=== PATIENT | female | born 1980 | race Caucasian/White ===

== ENCOUNTER 2016-12-05 01:30 | Emergency (ER) | payer OTHER ==
[2016-12-05 02:43] LABS: CALCIUM 8.4 mg/dL (8.5-10.1); CARBON DIOXIDE 22.1 mmol/L (21-32); CHLORIDE SERUM 106 mmol/L (98-107); CREATININE SERUM 0.7 mg/dL (0.6-1.0); GFR1 > 60 mL/min; GLUCOSE SERUM 101 mg/dL (74-106); PLATELET COUNT 288 x10^3mcL (130-400); POTASSIUM SERUM 3.5 mmol/L (3.5-5.1); SODIUM SERUM 137 mmol/L (136-145)
[2016-12-05 02:47] LABS: ALKALINE PHOSPHATASE 61 U/L (46-116); ALT/SGPT 23 U/L (14-59); AMYLASE 57 U/L (25-115); AST/SGOT 15 U/L (15-37); BASOPHIL % 4.9 % (0-2); BILIRUBIN TOTAL 0.14 mg/dL (0.20-1.00); LIPASE 183 IU/L (73-393); RED CELL DISTRIBUTION WIDTH 16.3 % (11.5-14.5)
[2016-12-05 02:49] LABS: ALBUMIN 3.3 g/dL (3.4-5.0)
[2016-12-05 02:53] LABS: microscopic required? YES; urine erythrocyte NEGATIVE (NEGATIVE)
[2016-12-05 05:01] VITALS: BP 124/90
== END 2016-12-05 05:00 | disposition left against medical advice (07) ==
LOC: ED 01:30
PROVIDERS: Emergency Medicine
DX: R10.9 Unspecified abdominal pain (principal); R51 Headache; R11.10 Vomiting, unspecified
CPT/HCPCS: J1170; J2270; J2405; J2765; J7030

== ENCOUNTER 2017-08-29 22:07 | Emergency (ER) | payer OTHER ==
[~2017-08-29] VITALS: Ht 152.4 cm; Wt 55.0 kg
[2017-08-29 22:54] VITALS: Ht 152.4 cm; Wt 55.0 kg
[2017-08-29 23:57] VITALS: BP 133/68
== END 2017-08-29 23:57 | disposition home or self-care (01) ==
LOC: ED 22:07
DX: S50.02XA Contusion of left elbow, initial encounter (principal); W22.8XXA Striking against or struck by other objects, initial encounter; Y93.89 Activity, other specified; Y92.89 Other specified places as the place of occurrence of the external cause; Y99.8 Other external cause status
CPT/HCPCS: Q0092

== ENCOUNTER 2018-10-14 18:02 | Emergency (ER) | payer MEDICAID ==
[~2018-10-14] VITALS: Ht 152.4 cm; Wt 64.6 kg
[2018-10-14 18:15] VITALS: Ht 152.4 cm; Wt 64.6 kg
[2018-10-14 19:34] VITALS: BP 119/89
== END 2018-10-14 19:34 | disposition home or self-care (01) ==
LOC: ED 18:02
DX: L20.9 Atopic dermatitis, unspecified (principal); Z98.51 Tubal ligation status; Z98.890 Other specified postprocedural states

== ENCOUNTER 2019-03-16 16:17 | Emergency (ER) | payer MEDICAID ==
[~2019-03-16] VITALS: Ht 154.9 cm; Wt 60.3 kg
[2019-03-16 16:33] VITALS: Ht 154.9 cm; Wt 60.3 kg
[2019-03-16 17:30] VITALS: BP 127/74
== END 2019-03-16 17:30 | disposition home or self-care (01) ==
LOC: ED 16:17
DX: D17.1 Benign lipomatous neoplasm of skin and subcutaneous tissue of trunk (principal); Z98.51 Tubal ligation status; Z86.2 Personal history of diseases of the blood and blood-forming organs and certain disorders involving the immune mechanism